=== PATIENT | female | born 1995 | race Caucasian/White ===

== ENCOUNTER 2017-02-22 10:14 | Emergency (ER) | payer SELFPAY ==
[2017-02-22] MEDS ORDERED: Lactated Ringer's 1,000 ML IV ONE (11:15)
[2017-02-22 12:04] LABS: BASO % 0.4 % (0.0-2.0); EOS # 0.1 K/uL (0.0-0.7); EOS % 1.4 % (0.0-4.0); HEMATOCRIT 33.9 % (34.0-47.0); LYMPH # 1.7 K/uL (1.0-4.3); LYMPH % 21.3 % (20.0-40.0); MEAN CELL VOLUME 88.4 fL (81.0-99.0); MEAN CORPUSCULAR HEMOGLOBIN 29.4 pg (27.0-31.0); MEAN CORPUSCULAR HGB CONC 33.3 g/dL (33.0-37.0); MEAN PLATELET VOLUME 8.8 fL (7.2-11.7); MONO # 0.5 K/uL (0.0-0.8); MONO % 6.7 % (0.0-10.0); NRBC % 0.1 % (0.0-2.0); RED CELL DISTRIBUTION WIDTH 15.4 % (11.5-14.5); WHITE BLOOD COUNT 7.8 K/uL (4.8-10.8)
[2017-02-22 12:12] LABS: CHLORIDE 102 mmol/L (98-107)
[2017-02-22 12:13] LABS: SODIUM 133 mmol/L (132-148)
[2017-02-22 12:15] LABS: ALKALINE PHOSPHATASE 68 U/L (38-126); ALT/SGPT 18 U/L (9-52); AST/SGOT 30 U/L (14-36); BILIRUBIN,TOTAL 0.5 mg/dL (0.2-1.3); BLOOD UREA NITROGEN 8 mg/dL (7-17); CARBON DIOXIDE 19 mmol/L (22-30); GFR AFRICAN-AMERICAN > 60; POTASSIUM 4.2 mmol/L (3.6-5.2); TOTAL PROTEIN 7.2 g/dL (6.3-8.3)
[2017-02-22 12:16] LABS: GLUCOSE,RANDOM 85 mg/dL (65-105); URIC ACID 3.8 mg/dL (2.2-7.5)
[2017-02-22 12:40] LABS: RBC URINE 7 /hpf (0-3); URINE BACTERIA MOD (<OCC); URINE BILIRUBIN NEGATIVE (NEGATIVE); URINE BLOOD NEGATIVE (NEGATIVE); URINE GLUCOSE (UA) NORMAL (Normal); URINE KETONE TRACE mg/dL (NEGATIVE); URINE LEUKOCYTE ESTERASE NEG Leu/uL (Negative); URINE PROTEIN 1+ mg/dL (NEGATIVE); URINE UROBILINOGEN NORMAL mg/dL (0.2-1.0); WBC URINE 10 /hpf (0-5)
[2017-02-22 12:45] LABS: URINE COLOR YELLOW (YELLOW)
--- NOTE | 2017-02-22 13:34 | OBHP ---
Datetime: 02/22/2017 12:09 IP Adm Impression: , intrauterine IP Chief Complaint Other: headache IP Admit Plan: Discharge home Admit Comment, IP Provider: chief complaint-headache HPI 21 y/o with due date in apr as per patient here with c/o headache since yesterday.she sta yolanda she took tylenol but got no relife.patient denies nausea, vomiting, chest pain, shortness of chichi th, epigastric pain course -no rpenatal care; had 1 visit in matrch at [facility] where she was told he positive test.missed apts in december and january PMH denies PSH denies OBGYN HX ; HX of high blood pressure with first preganncy Social hx denies tobacco,alcohol or illict drug use A/P 21 y/o at 22 + wga with c/o headache -ultarsound -pih lavs -iv fluids 1.14 pm records at [facility] reviewed.patient had ultrasound 11/14/2016 and that gave her MARIA ISABEL 05/18/2017 Patients states that headahe is much improved nowlabs-plt, lfts, bun.cr, ldh, uric acid wnl UA with 1+protein, bacteria,WBC, RBC, Trace ketones A/P patient at 27.6 wga with c/o headache.Headache improved with tylenol.UTI. patient advised to see obgyn as outpatient as soon aspossibel.discussed need for anatomical scan a nd routine care discussed need to repeat UA again patient given pre-eclampsia, labor and decraesed movement precautions Pelvic Type - PN: Adequate Extremities - PN: Normal Abdomen - PN: Normal Back - PN: Normal Lungs - PN: Normal Heart - PN: Normal Neurologic - PN: Normal General - PN: Normal Contraction Comments Provider: none IP Hx Assessment: No Care EGA AdmitDate IP: 27.6 Vital Signs Provider: Reviewed; Within Normal Limits IP Chief Complaint: Other FHR Category Provider Fetus A: Category I Dilatation, Provider: 0 Genitourinary Exam: Normal DTRs - PN: Normal
== END 2017-02-22 13:07 | disposition home or self-care (01) ==
LOC: C.EROB 10:14
DX: O26.892 Other specified pregnancy related conditions, second trimester (principal); R51 Headache; Z3A.27 27 weeks gestation of pregnancy
CPT/HCPCS: 80053; 81001; 83615; 84550; 85025; 99283; J7120